=== PATIENT | female | born 1955 | race African-American/Black ===

== ENCOUNTER 2019-04-09 15:34 | Inpatient (IN) ==
--- NOTE | 2019-04-09 16:33 | EKG Report ---
Test Performed on : 04/09/2019 4:21:10 PM Test Reason : WEAK Blood Pressure : / mmHG Vent. Rate : 041 BPM Atrial Rate : 075 BPM P-R Int : 000 ms QRS Dur : 078 ms QT Int : 430 ms P-R-T Axes : 066 -19 083 degrees QTc Int : 354 ms Sinus rhythm. with 2nd degree AV block. with premature atrial complexes. Nonspecific ST abnormality Abnormal ECG When compared with ECG of 25-JUN-2011 11:43, premature atrial complexes. are now present Sinus rhythm. is now with 2nd degree AV block. Vent. rate has decreased BY 28 BPM Non-specific change in ST segment in Lateral leads Unconfirmed Result
[2019-04-09 17:30] LABS: BASO# 0.01 X1000 (0.0-0.2); BASO% 0.1 % (0.0-0.8); EOS# 0.04 X1000 (0.0-0.7); EOS% 0.3 % (0.0-10.0); HEMATOCRIT 40.1 % (37.0-47.0); HEMOGLOBIN 13.4 g/dL (12.0-16.0); IMM GRAN# 0.05 X1000 (0.0-0.04); IMM GRAN% 0.4 % (0.0-0.5); LYMPH# 1.07 X1000 (1.2-3.4); MCH 29.3 PG (27-31); MCHC 33.4 g/dL (33-37); MCV 87.6 FL (81-99); MONO# 1.02 X1000 (0.11-0.59); MONO% 7.6 % (1.7-9.3); MPV 12.1 FL (7.4-10.4); NEUT# 11.18 X1000 (1.4-6.5); NEUT% 83.6 % (42.2-75.2); PLT 203 X1000 (130-400); RBC 4.58 XMIL (4.2-5.4); RDW 13.6 % (11.5-14.5); WBC 13.37 X1000 (4.8-10.8)
--- NOTE | 2019-04-09 17:38 | Diag Imaging Result Doc PS360 ---
EXAM: CHEST-1 VIEW HISTORY: weakness TECHNIQUE: Portable chest single view COMPARISON: None. FINDINGS: The lungs are well expanded. The heart is not enlarged. The vessels are not distended. There are no infiltrates. No effusion identified. IMPRESSION: Negative exam. Electronically signed by Nuno Ashraf 04/09/2019 5:35 PM
[2019-04-09 17:42] LABS: INR 1.01; PROTIME 14.1 Seconds (11.0-16.0)
[2019-04-09 17:51] LABS: AGAP 10; ALB/GLOB RATIO 1.6; ALBUMIN 3.9 g/dL (3.5-5.0); ALKALINE PHOSPHATASE 177 U/L (32-104); BUN 23 mg/dL (8-22); CALCIUM 9.3 mg/dL (8.8-10.2); CHLORIDE 106 mmol/L (98-107); COSMO 288; CREATININE 1.1 mg/dL (0.5-0.9); ESTIMATED GFR > 60; GLUCOSE 193 mg/dL (70-104); GOT 88 U/L (10-30); GPT 269 U/L (10-36); POTASSIUM 4.8 mmol/L (3.5-5.1); PTT HEPARIN PROTOCOL 30.8 Seconds; SODIUM 140 mmol/L (136-145); TCO2 24 mmol/L (25-35); TOTAL BILIRUBIN 0.52 mg/dL (0.20-1.00); TOTAL PROTEIN 6.4 g/dL (6.3-8.3)
[2019-04-09 18:25] LABS: URINE SOURCE CATH
--- NOTE | 2019-04-09 18:30 | PROVIDER DOCUMENTATION ---
This chart was entered by Sarita Sena Scribe, acting as scribe for Bony Mehta MD. HPI-General Adult - General Chief Complaint: Weakness Stated Complaint: WEAKNESS,CONSTIPATED,KIDNEY TRANPLANT PATIENT Time Seen by Provider: 04/09/19 17:10 Source: patient, family Allergies/Adverse Reactions: Patient Allergies Allergy/AdvReac Type Severity Reaction Status Date / Time No Known Allergies Allergy Verified 04/09/19 16:32 Home Medications: Home Medication List Medication Instructions Recorded Confirmed Last Taken Type ATORVAstatin [Lipitor] 40 mg PO DAILY 04/09/19 04/09/19 Unknown History Diltiazem HCl [Cartia Xt] 1 tab PO DAILY 04/09/19 04/09/19 Unknown History Insulin Aspart [Novolog Flexpen] 14 units SQ DIRECTED 04/09/19 04/09/19 Unknown History Mycophenolate Sodium [Mycophenolic 1 tab PO DAILY 04/09/19 04/09/19 Unknown History Acid] Omeprazole 20 mg PO DAILY 04/09/19 04/09/19 Unknown History Pen Needle, Diabetic [Sure Comfort] 6 units SQ QHS 04/09/19 04/09/19 Unknown History Prednisone 1 tab PO DAILY 04/09/19 04/09/19 Unknown History Tacrolimus [Prograf] 6 mg PO BID 04/09/19 04/09/19 Unknown History Terbinafine HCl 1% Cream [Lamisil 1 ml TOP PRN PRN 04/09/19 04/09/19 Unknown History 1% Cream] - History of Present Illness -Gen Adult Nature of Presenting Problems: 63 yof presents to the ed with c/o bradycardia dizziness and 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 denies: back/neck pain, chest pain, cough, diarrhea, fever/chills, headaches, nausea, shortness of breath, vomiting, trouble walking Similar Symptoms Previously?: Yes Recently seen or treated by another doctor?: No Review of Systems - Adult - REVIEW OF SYSTEMS - ADULT Constitutional: reports: no symptoms reported Eyes: reports: see HPI, blurred vision Ears, Nose, Mouth & Throat: reports: no symptoms reported Cardiovascular: reports: see HPI, other (bradycardia) Respiratory: reports: no symptoms reported Gastrointestinal: denies: abdominal pain, diarrhea, nausea, vomiting Genitourinary: reports: no symptoms reported Musculoskeletal: reports: see HPI, muscle weakness. denies: back pain, neck pain Integumentary: reports: no symptoms reported Neurological: reports: see HPI, dizziness/vertigo. denies: headache/migraines, paresthesia, seizure, slurred speech, syncope, tremors Psychiatric: reports: no symptoms reported Endocrine: reports: no symptoms reported Hematologic/Lymphatic: reports: no symptoms reported Allergic/Immunologic: reports: no symptoms reported All Other Systems: Reviewed and Negative Past History - Adult - PAST MEDICAL HISTORY-ADULT Review of Records: reports: Nursing Assessment Review, Medications Reviewed Major Childhood Illnesses: reports: denies history Cardiovascular: reports: denies history, HTN, hyperlipidemia Respiratory: reports: denies history Gastrointestinal: reports: GERD Obstetrical/Gynecological: reports: denies history Genitourinary: reports: other (kidney transplant pt) Musculoskeletal: reports: denies history Neurological: reports: denies history Psychiatric: reports: denies history Endocrine/Immune: reports: Diabetes Diabetes Type: Type 1 Other Conditions: reports: denies history - PRIOR SURGERIES/PROCEDURES Surgical/Procedure History: reports: other (kidney transplant) - IMMUNIZATION STATUS Childhood Immunizations: See Nurse Assessment Flu Vaccine: See Nurse Assessment - FAMILY HISTORY Family History: reviewed, not pertinent - SOCIAL HISTORY Smoking: denies Substance Use: denies Living Situation: family Physical Exam-General - PHYSICAL EXAM-ADULT Initial Vital Signs Reviewed: Yes - CONSTITUTIONAL General Appearance: appears well, alert, mild distress - EYES Eyes: PERRL/EOMI, pink conjunctivae - HEAD, EARS, NOSE, MOUTH & THROAT HENMT: moist mucous membranes - NECK Neck: non-tender, full range of motion, supple, normal inspection - RESPIRATORY Respiratory: chest non-tender, lungs clear, normal breath sounds - CARDIOVASCULAR Cardiovascular: normal peripheral pulses, bradycardia (43) - GASTROINTESTINAL (ABDOMEN) Abdominal Exam: normal bowel sounds, non tender, soft - LYMPHATIC Lymphatic: no adenopathy - MUSCULOSKELETAL Back Exam: normal inspection, no CVA tenderness, no vertebral tenderness Extremity: normal range of motion, non-tender, normal gait, normal inspection, no pedal edema, no calf tenderness, normal capillary refill, pelvis stable - SKIN Integumentary: normal color, normal turgor, warm/dry - NEUROLOGIC Neurologic: grossly normal - PSYCHIATRIC Psych/Mental Status: normal mood/affect, normal thought content, normal thought process, oriented x 3 Progress - PLAN OF CARE/RESULTS Progress/Plan/Lab Results: Vital Signs - 8 hr 04/09/19 15:38 04/09/19 16:28 04/09/19 16:30 Temperature 98.0 F Pulse Rate 43 L 44 L 41 L Respiratory Rate 18 20 18 Blood Pressure 188/82 O2 Sat by Pulse Oximetry 97 04/09/19 16:47 04/09/19 17:00 04/09/19 17:01 Temperature Pulse Rate 39 L 43 L 39 L Respiratory Rate 14 14 18 Blood Pressure 156/66 135/77 O2 Sat by Pulse Oximetry 100 Laboratory Results - last 24 hr 04/09/19 04/09/19 16:24 16:41 WBC 13.37 H RBC 4.58 Hgb 13.4 Hct 40.1 MCV 87.6 MCH 29.3 MCHC 33.4 RDW Std Deviation 13.6 Plt Count 203 MPV 12.1 H Immature Gran % (Auto) 0.4 Neut % (Auto) 83.6 H Lymph % (Auto) 8.0 L Alexander % (Auto) 7.6 Eos % (Auto) 0.3 Baso % (Auto) 0.1 Immature Gran # (Auto) 0.05 H Neut # (Auto) 11.18 H Lymph # (Auto) 1.07 L Alexander # (Auto) 1.02 H Eos # (Auto) 0.04 Baso # (Auto) 0.01 POC Glucose 199 H Orders Category Date Time Status CHEST-1 VIEW [RAD] Stat Exams 04/09/19 17:16 Completed CBC WITH ELECTRONIC DIFF [HEME] Stat Lab 04/09/19 16:41 Completed COMPREHENSIVE METABOLIC PANEL [CHEM] Stat Lab 04/09/19 16:41 Received PRO B-NATRIURETIC PEPTIDE Stat Lab 04/09/19 17:18 Received PROTIME WITH INR [COAG] Stat Lab 04/09/19 16:41 Received PTT HEPARIN PROTOCOL [COAG] Stat Lab 04/09/19 16:41 Received TROPONIN T Stat Lab 04/09/19 16:41 Received URINALYSIS [URINALYSIS] Stat Lab 04/09/19 17:16 Uncollected EKG [EKG] Stat Ther 04/09/19 15:42 Draft EKG [EKG] Stat Ther 04/09/19 17:16 Ordered Result Diagrams: 04/09/19 16:41 04/09/19 16:41 - EKG 1 Time of EKG reading by physician:: 16:21 EKG Read and Signed by:: Bony Mehta EKG Interpretation (*Must complete 3 of following elements*): Abnormal Rate: 41 Rhythm: sinus rhythm w/ 2nd degree AV block w/ PAC [place]: normal QRS: normal DC Interval: normal Comments: nonspecific st abnormality - XRAY 1 XRAY: Bilateral XRAY Study: Chest Impression: See EMR Report (EXAM: CHEST-1 VIEW HISTORY: weakness TECHNIQUE: Portable chest single view COMPARISON: None. FINDINGS: The lungs are well expanded. The heart is not enlarged. The vessels are not distended. There are no infiltrates. No effusion identified. IMPRESSION: Negative exam. Electronically signed by Nuno Ashraf 04/09/2019 5:35 PM 04/09/191734 Interpreting Physician: Nuno Ashraf MD Dictated Date/Time: 04/09/191734 cc: Bony Mehta MD; Martina Lee MD) - CONSULTS/PCP/HOSPITALIST Notification #1 *Consult/PCP/Hospitalist*: Summer ORTHOPAEDIC NURSE for Hospitalist Time Discussed: 18:27 Consult Disposition: Will see in ED, Admit Departure - Departure Date of Disposition Decision: 04/09/19 Time of Disposition Decision: 18:27 DIAGNOSIS: Symptomatic bradycardia, CHF (congestive heart failure), Elevated LFTs Disposition: ADMITTED INPATIENT 09 Certified Medical Emergency: Emergent Condition: Fair Referrals and Follow-Ups: Martina Lee MD [Primary Care Provider] - - Critical Care Note This patient required my direct & personal management of CC.: Yes Total Time (mins): 36 Critical Care Statement: This patient required my direct personal management to treat or rule out processes, the absence of which, could potentiallly result in sudden, clinically significant life or limb threatening deterioration. Attestation - Physician/ YARIEL Attestation Patient care was provided by Advanced Practice Provider:: No The physician spent face to face time with patient:: Yes Advanced Practice Provider documentation review:: Supervising physician onsite and consulted in the evaluation and care of this patient. The physician did have a face to face encounter with the patient. This chart was documented by the indicated scribe, (Sarita Sena Scribe) and accurately reflects the services I performed and decisions made by me, Bony Mehta MD, as attested by the provider's signature.
[2019-04-09 18:34] LABS: BILIRUBIN URINE NEGATIVE (NEGATIVE); BLOOD URINE NEGATIVE (NEGATIVE); COLOR YELLOW; GLUCOSE URINE TRACE mg/dL (NEGATIVE); KETONE URINE NEGATIVE (NEGATIVE); LEUKOCYTES URINE NEGATIVE (NEGATIVE); NITRITE URINE NEGATIVE (NEGATIVE); PROTEIN URINE 70 mg/dL (NEGATIVE); SP GRAVITY URINE 1.019; TURBIDITY URINE CLEAR (CLEAR); UROBILINOGEN URINE NORMAL (NORMAL)
[2019-04-09 18:36] LABS: UR EPITHELIAL CELLS <10 /HPF (<10); URINE BACTERIA 1+ /HPF; URINE RBC <10 /HPF (<10); URINE WBC <10 /HPF (<10)
[2019-04-09] MEDS ORDERED: LAMISIL 1% CREAM TOP PRN (19:42)
[2019-04-09] MEDS ORDERED: TYLENOL PO PRN (21:01)
[2019-04-09] MEDS ORDERED: ZOFRAN IV PRN (21:01)
[2019-04-09] MEDS ORDERED: LOVENOX SUBQ SCH (21:15)
[2019-04-09] MEDS ORDERED: NS 1,000 ML IV SCH (21:15)
[2019-04-09 21:20] LABS: HEMOGLOBIN A1C 11.6 % (4.8-6.0)
--- NOTE | 2019-04-09 22:56 | HISTORY AND PHYSICAL ---
CHIEF COMPLAINT: Weakness. HISTORY OF PRESENT ILLNESS: Ms. Lopez is a 63-year-old female who states that she has been intermittently weak for the past 1 week. She stated that she felt as if her heart rate was a low. She has had some dizziness and a near syncopal episode. This could all be triggered with any type of light activity or even just sitting still. She denied any kind of chest pain, cough, fever, chills, nausea, vomiting, or diarrhea or associated shortness of breath. She came into the emergency room and was found to have a heart rate in the 30s and 40s. EKG showed a second-degree AV block with a rate of 41 and noted PACs. She will be placed in ICU for further evaluation and treatment. PAST MEDICAL HISTORY: 1. Hypertension. 2. Renal transplant in 2015. 3. Diabetes mellitus type 2. 4. Hyperlipidemia. PREVIOUS SURGICAL HISTORY: 1. Renal transplant 2015 at [place]. 2. Hysterectomy. SOCIAL HISTORY: She is . No tobacco, alcohol or illicit drugs. 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 FAMILY HISTORY: Father had multiple myeloma and . Mother is still living. She has dementia. ALLERGIES: No known drug allergies. HOME MEDICATIONS: 1. Diltiazem 120 mg extended release 1 p.o. daily. 2. NovoLog FlexPen sliding scale as directed. 3. Atorvastatin 40 mg p.o. daily. 4. Mycophenolate sodium 360 mg p.o. daily. 5. Omeprazole 20 mg p.o. daily. 6. Prednisone 20 mg p.o. daily. 7. Prograf 6 mg p.o. b.i.d. 8. Lamisil 1% cream topically to feet. REVIEW OF SYSTEMS: Fourteen-point review of systems conducted with the patient. Pertinent positives listed above in the HPI. All other systems reviewed and found to be negative. PHYSICAL EXAMINATION: VITAL SIGNS: Temperature 98, pulse 39, respirations 14, blood pressure 121/61, oxygen saturation 100% on room air. GENERAL: Pleasant but lethargic 63-year-old female. She is alert and oriented times 3, answers all questions appropriately, is somewhat slow to respond related to being lethargic. She is in no acute distress. HEENT: Head is atraumatic, normocephalic. Pupils equal, round, reactive to light. Extraocular eye movements intact. Sclerae are anicteric. Conjunctiva is pink. Oral mucosa is moist. NECK: Supple. No JVD. No thyromegaly. Trachea is midline. No cervical lymphadenopathy. CARDIAC: S1, S2 appreciated. No murmurs, gallops, rubs. Patient is bradycardic. LUNGS: Clear to auscultation bilaterally. No rhonchi, wheezes, rales. Symmetric rise and fall with respirations. ABDOMEN: Soft, nondistended, nontender. Bowel sounds present all 4 quadrants, normoactive. No pulsatile mass. No organomegaly. EXTREMITIES: No clubbing, cyanosis or edema. One-plus pedal pulses bilaterally. GENITOURINARY: No bladder distention. Patient voids. Otherwise deferred. NEUROLOGICAL: Lethargic but alert and oriented times 3. Cranial nerves 2-12 are grossly intact. DIAGNOSTIC DATA: Chest x-ray: No infiltrates, no effusions, no pulmonary edema. LABORATORY DATA: WBC 13.37. Hemoglobin 13.4. Hematocrit 40.1. Platelet count 203. Coagulation studies within normal limits. Sodium 140. Potassium 4.8. Chloride 106. Carbon dioxide 24. BUN 23. Creatinine 1.1. Glucose 193. Urine unremarkable. ASSESSMENT AND PLAN: 1. Symptomatic bradycardia. We will place in ICU for close monitoring. Consult Dr. Lyn, who is mitigation supervisor for Cardiology. We will give 1/2 amp of atropine if patient's heart rate sustains under 35 beats per minute. Continue to monitor closely. We will hold Cardizem. 2. History of renal transplant. Continue home medications. Check Prograf level. 3. Hyperlipidemia. Continue atorvastatin. 4. Diabetes mellitus type 2 with hyperglycemia. Check hemoglobin A1c. Sliding scale insulin with fingerstick blood sugars. 5. History of hypertension, normotensive at this time. We will continue to monitor. Further recommendations per patient clinical course. Dictated by ISRAEL Gauthier for Mike Dunaway MD I have performed a face to face diagnostic evaluation. Labs and Xrays reviewed. Exam- chest - clear, CV- bradycardic A/P- Bradycardia- Admit to ICU, cardiology consult. Dr. Dunaway cc: ISRAEL Gauthier MD [facility]
[2019-04-10] MEDS: PROGRAF PO SCH ×2 (00:20→08:20)
[2019-04-10] MEDS ORDERED: LIPITOR PO SCH ×2 (00:30→09:00)
[2019-04-10] MEDS ORDERED: PATIENT'S OWN MED PO SCH ×3 (01:00→09:00)
[2019-04-10] MEDS ORDERED: CELLCEPT PO ONE (01:09)
[2019-04-10] MEDS ORDERED: ATROPINE SYRINGE IV ONE (05:09)
[2019-04-10] MEDS: HUMALOG SUBQ SCH ×2 (06:04→11:39)
[2019-04-10 06:12] LABS: BASO# 0.01 X1000 (0.0-0.2); BASO% 0.1 % (0.0-0.8); EOS# 0.07 X1000 (0.0-0.7); EOS% 0.5 % (0.0-10.0); HEMATOCRIT 35.7 % (37.0-47.0); HEMOGLOBIN 11.6 g/dL (12.0-16.0); IMM GRAN# 0.02 X1000 (0.0-0.04); IMM GRAN% 0.1 % (0.0-0.5); LYMPH% 9.6 % (20.5-51.1); MCHC 32.5 g/dL (33-37); MCV 89.3 FL (81-99); MONO# 1.49 X1000 (0.11-0.59); MPV 12.4 FL (7.4-10.4); NEUT# 10.65 X1000 (1.4-6.5); NEUT% 78.7 % (42.2-75.2); PLT 168 X1000 (130-400); RDW 13.7 % (11.5-14.5); WBC 13.54 X1000 (4.8-10.8)
[2019-04-10] MEDS ORDERED: ATROPINE SYRINGE IV PRN (06:17)
[2019-04-10 06:43] LABS: CALCIUM 8.7 mg/dL (8.8-10.2); CREATININE 1.3 mg/dL (0.5-0.9); MAGNESIUM 1.6 mg/dL (1.5-2.7); POTASSIUM 4.5 mmol/L (3.5-5.1)
[2019-04-10] MEDS ORDERED: PRILOSEC PO SCH (09:00)
[2019-04-10] MEDS ORDERED: PREDNISONE PO SCH (09:00)
--- NOTE | 2019-04-10 10:27 | CARDIOLOGY CONSULTATION ---
DATE: 04/10/2019 REQUESTING PHYSICIAN: Hospitalist Service REASON FOR CONSULTATION: Near syncope/second degree AV block. HISTORY OF PRESENT ILLNESS: Ms. Lopez is a 63-year-old black female who was in her usual state of health up until a couple of weeks ago when she started noticing some feeling of being bloated in the stomach. About a week ago, she started feeling dizzy, lightheaded and weak. About 4 days prior to admission, she had a near syncopal episode. She also noted some exertional dyspnea and feeling more tired than usual. No chest pains. No edema. When the symptoms continued to get worse, she decided to come for evaluation. She was seen in the ER at 3:42 p.m. on 04/09/2019. They did an EKG that shows second degree atrioventricular block. They have admitted the patient to the hospital for that reason. Subsequent EKG done this morning at 6:29 in the morning shows the same, rate is 37 beats per minute with a second degree AV block. The QRS is narrow. A chest x-ray was done yesterday, and it shows heart is not enlarged, vessels are not distended. Blood work indicates that her BUN is 25, creatinine 1.3. Her ProBNP level was 1085, normal is up to 226 picograms per mL. AST is 88, ALT is 269, alkaline phosphatase 177. The patient seems to be comfortable at this time. I am seeing her at about 9:30 in the morning of 04/10/2019. PAST MEDICAL HISTORY: Positive for end stage renal disease, I believe since 2010. For a period of time, she did peritoneal dialysis. The reason for the end stage renal disease is assisted diabetes mellitus and hypertension. The patient has hyperlipidemia. The [facility] a [facility] checkup. They did a stress test which was done with a Lexiscan protocol, and it showed normal perfusion images. No ischemia. No scar. There is no ischemic burden. Ejection fraction is more than 70%. She underwent renal transplantation on 11/21/2014 at [facility], and since then, she has been followed by Dr. Elsa Boyce at [facility]. She is the one who is monitoring her medications. PAST SURGICAL HISTORY: In addition to the renal transplant includes hysterectomy. SOCIAL HISTORY: The patient is to her . They have 1 child and 3 grandchildren. 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 ALLERGIES: She is not allergic to any medication. FAMILY HISTORY: Noncontributory for heart disease. HOME MEDICATIONS: Listed at the time of this admission included atorvastatin 40 mg daily, diltiazem CD 120 daily, insulin FlexPen 14 units as directed, mycophenolate 1 tablet twice a day, omeprazole 20 mg daily, prednisone 1 tablet daily, Prograf 6 mg twice a day, Lamisil and prednisone. REVIEW OF SYSTEMS: Other than what I have reported as acute findings is noncontributory. She does have some neuropathy that causes her to have pain in both legs intermittently. No other issues. No orthopedic issues. No cardiopulmonary issues in the past. No gastrointestinal problems, etc., etc. Multiple systems were checked. PHYSICAL EXAMINATION: Blood pressure is 145/54, pulse right now is 40, respirations 15, temperature is 98.4. She is awake, alert and oriented, no distress. HEENT is unremarkable. Chest: Clear to auscultation and percussion. Heart sounds regular and rhythmic, bradycardic. Abdomen: Slightly distended. Soft. Bowel sounds diminished. No hepatomegaly. Extremities showed decreased pulses diffusely. No edema. Neurologic: Follows commands. Moves all 4 extremities. DIAGNOSTIC DATA: EKG, as I said, this morning showed sinus rhythm with second degree AV block. The ventricular rate on this morning's EKG is 37 beats per minute, QRS is 76 milliseconds, PA interval is 138 milliseconds. IMPRESSION: 1. The patient presented to the hospital with symptomatic bradycardia with near syncope secondary to second degree AV block. 2. End stage renal disease, previously on peritoneal dialysis, now she is status post renal transplantation x4 years. She is followed by [facility]. 3. History of hypertension. 4. History of diabetes mellitus type 2. RECOMMENDATIONS: At this time, I would suggest to consider pacemaker implantation for this patient. We will discuss with [facility]. Benefits, risks and complications of pacemaker implantation were discussed. She understood and requested to proceed. cc: Omar Lyn MD
[2019-04-10 12:26] VITALS: BP 176/44
--- NOTE | 2019-04-10 20:09 | DISCHARGE SUMMARY ---
ADMISSION DATE: 04/09/2019 DISCHARGE DATE: 04/10/2019 DISPOSITION: [facility]. CONSULTATION DURING THIS ADMISSION: Cardiology was consulted. The patient was seen by Dr. Lyn. ADMISSION DIAGNOSES: 1. Symptomatic bradycardia. 2. History of renal transplant. 3. Dyslipidemia. 4. Diabetes mellitus. DIAGNOSES AT THE TIME OF TRANSFER: 1. Symptomatic bradycardia with near syncope, most likely related to second-degree AV block. The patient will be transferred to [facility] for Cardiology evaluation, possible pacemaker placement . 2. End-stage renal disease. The patient was previously on peritoneal dialysis. She is status post a renal transplant for the past 4 years. Follows up at [place]. 3. Uncontrolled diabetes mellitus with presenting A1c of 11.6. The patient is currently on insulin regimen. 4. Chronic kidney disease stage IIIa. 5. Chronic immunosuppressive therapy due to renal transplant. 6. Dyslipidemia. PRESENTING COMPLAINT: Presenting complaint was weakness, dizziness, and near passing out. HISTORY OF PRESENTING COMPLAINT: Ms. Lopez is a 63-year-old female with a history of renal transplant in 2014, diabetes mellitus, and hypertension who came to the emergency department because of a couple days to weeks of weakness and dizziness especially on orthostatism. She was found to have a heart rate of 30. EKG shows a second-degree heart block. The patient was admitted to the ICU for higher level of care. Cardiology was consulted. HOSPITAL COURSE: Ms. Lopez was admitted to the ICU and was adequately fluid resuscitated. Heart rate continues to be in the 40s, but she is currently not symptomatic because she is at rest, but she continues to be in second-degree heart block. The patient was seen by Dr. Lyn who has gotten in touch with [facility] for transfer. The patient has successfully been accepted and will be pending the bed availability to transfer her over there. Ms. Lopez os also on chronic immunosuppressive therapy, including mycophenolate, prednisone, and tacrolimus, which she is currently on. TIME SPENT: Time spent for discharge is 34 minutes. cc: Joni Arredondo MD
--- NOTE | 2019-04-11 09:16 | ECHO REPORT ---
ORDER DATE: 04/10/2019 INTERPRETING PHYSICIAN: Dr. Lyn REQUESTING PHYSICIAN: CLINICAL INDICATIONS: This is a 63-year-old female with heart block, syncope. M-MODE MEASUREMENTS: Right ventricle: cm. Left ventricle end diastole: 4.4 cm. Left ventricle end systole: 3.0 cm. Posterior wall: 1.1 cm. Interventricular septum: 1.1 cm. Left atrium: 3.8 cm. Aortic root: 2.7 cm. SUMMARY OF 2-DIMENSIONAL IMAGIN. The left ventricular function is normal. Ejection fraction is estimated at 65%. No wall motion abnormality noted. 2. Left atrium is mildly enlarged. 3. Mitral valve shows mild degree of regurgitation. 4. Pulse wave Doppler of mitral inflow shows relatively normal E/A ratio. 5. Tissue Doppler of septal and lateral mitral annulus averages 7 cm. 6. There is no diastolic dysfunction. 7. The patient is in obvious second-degree AV block. 8. The tricuspid valve shows mild degree of regurgitation. 9. Pulmonary pressure is estimated at 43 mmHg. 10.Pulmonic valve is normal. 11.Aortic valve has 3 cusps. They open normally. Color flow mapping is unremarkable. 12.There is no pericardial effusion, mass or thrombus. Clinical correlation is recommended. cc: MD Gumaro Tracy CRNP
--- NOTE | 2019-04-12 09:26 | EKG Report ---
Test Performed on : 04/10/2019 06:29:07 AM Test Reason : chest pain Blood Pressure : / mmHG Vent. Rate : 037 BPM Atrial Rate : 074 BPM P-R Int : 138 ms QRS Dur : 076 ms QT Int : 466 ms P-R-T Axes : 058 -11 052 degrees QTc Int : 365 ms Sinus rhythm. with 2nd degree AV block. with 2:1 AV conduction. Low voltage QRS Abnormal ECG When compared with ECG of 09-APR-2019 16:21, (Unconfirmed) premature atrial complexes. are no longer present Confirmed by Salo OLIVEROS, Rigo Sanchez ([id number]) on 04/13/2019 9:59:46 AM
== END 2019-04-10 12:20 | disposition short-term general hospital (02) | DRG 309 ==
LOC: ED 15:34 → ICU 21:28 → SUATTDRO 21:28
PROVIDERS: ATTEND Internal Medicine
CPT/HCPCS: 71010; 71045; 80048; 80053; 80197; 81001; 82948; 83036; 83735; 83880; 84443; 84484; 85025; 85610; 85730; 93005; 93010; 93306; A9270; C8929; J0461; J1650; J1815; J7030; J7506; J7512; J7517; Q9957; XXXXX